=== PATIENT | male | born 1950 | race Caucasian/White ===

== ENCOUNTER 2019-10-09 21:53 | Emergency (ER) | payer MEDICARE ==
[~2019-10-09] VITALS: Ht 190.5 cm; Wt 99.8 kg
[2019-10-09] MEDS ORDERED: ONDANSETRON 4 MG ORAL DISINTEGRATING TAB (Q0162 PER 1MG) PO ONE (22:30)
[2019-10-09] MEDS ORDERED: NS 1,000 ML IV ONE (22:45)
[2019-10-09 22:51] LABS: INFLUENZA A AMPLIFICATION NEGATIVE (NEGATIVE); INFLUENZA B AMPLIFICATION NEGATIVE (NEGATIVE)
[2019-10-09] MEDS ORDERED: ACETAMINOPHEN 325 MG TAB PO ONE (23:00)
[2019-10-09 23:07] LABS: BASO % 0.2 % (0.0-1.0); EOS # 0.1 10^3/uL (0.0-0.5); EOS % 1.1 % (0.0-3.0); HEMATOCRIT 46.9 % (42.0-52.0); HEMOGLOBIN 15.1 g/dl (13.5-17.5); LYMPH % 3.1 % (24.0-44.0); MEAN CORPUSCULAR HEMOGLOBIN 30.9 pg (27.0-33.0); MEAN CORPUSCULAR HGB CONC 32.2 g/dl (32.0-36.5); MEAN CORPUSCULAR VOLUME 96.1 fl (80.0-96.0); MONO # 0.4 10^3/uL (0.0-0.8); MONO % 6.4 % (0.0-5.0); NEUTROPHILS # 5.4 10^3/uL (1.5-8.5); PLATELET COUNT, AUTOMATED 133 10^3/uL (150-450); RED BLOOD COUNT 4.88 10^6/uL (4.30-6.10); WHITE BLOOD COUNT 6.1 10^3/uL (4.0-10.0)
[2019-10-09 23:22] LABS: INR 1.06; PROTHROMBIN TIME 13.5 SECONDS (11.8-14.0)
[2019-10-09 23:23] LABS: PARTIAL THROMBOPLASTIN TIME 29.4 SECONDS (25.0-38.4)
[2019-10-09 23:32] LABS: ALBUMIN 4.4 GM/DL (3.2-5.2); ALT/SGPT 31 U/L (12-78); BILIRUBIN,DIRECT 0.3 MG/DL (0.0-0.2); BILIRUBIN,TOTAL 0.8 MG/DL (0.2-1.0); BLOOD UREA NITROGEN 23 MG/DL (7-18); CARBON DIOXIDE LEVEL 27 MEQ/L (21-32); CHLORIDE LEVEL 106 MEQ/L (98-107); CK-MB VALUE MASS 6.9 NG/ML (<3.6); CPK CREATINE PHOSPHOKINASE 403 U/L (39-308); CREATININE FOR GFR 1.37 MG/DL (0.70-1.30); GLUCOSE, FASTING 124 MG/DL (70-100); LIPASE 104 U/L (73-393); MB/CK RELATIVE INDEX 1.71 (< OR =4); POTASSIUM SERUM 4.6 MEQ/L (3.5-5.1); SODIUM LEVEL 139 MEQ/L (136-145); TOTAL PROTEIN 7.9 GM/DL (6.4-8.2); TROPONIN I < 0.02 NG/ML (< 0.10)
[2019-10-09 23:35] LABS: LYMPH # 0.2 10^3/uL (1.5-5.0)
[2019-10-10 00:21] LABS: MYOGLOBIN SCREEN, URINE NEGATIVE (NEGATIVE)
[2019-10-10] MEDS ORDERED: IBUPROFEN 800 MG TAB PO ONE (00:30)
[2019-10-10] MEDS ORDERED: ONDA4TAB6 PO (00:59)
[2019-10-10 01:02] VITALS: BP 125/69
--- NOTE | 2019-10-10 06:30 | ECGEPIP ---
[facility] - ED Test Date: 2019-10-09 Pat Name: Arvind MATHEWS Department: Room: - Gender: Male Compliance Assistant: FRANCA : 1950 Requested By: FRANKIE HUMPHRIES PA-C Order Number: [id number] Reading MD: Mary Jane Laura Measurements Intervals [place] Rate: 84 P: 49 ME: 172 QRS: 17 QRSD: 95 T: 41 QT: 356 QTc: 423 Interpretive Statements SINUS RHYTHM SEPTAL MYOCARDIAL INFARCTION, PROBABLY OLD NONSPECIFIC ST T WAVE CHANGES DELAYED R WAVE PROGRESSION NO PRIOR ECG FOR COMPARISON Electronically Signed on 10-10-2019 6:30:05 EST by Mary Jane Laura
--- NOTE | 2019-10-10 11:12 | REP ---
CHEST PA AND LATERAL: 10/10/2019. CLINICAL HISTORY: Fever. FINDINGS: No prior study. Lungs adequately inflated. There is no infiltrate, effusion, atelectasis or mass. No lateral pleural thickening apical scarring or pneumothorax. The heart, mediastinal and hilar contours grossly unremarkable. The aorta is tortuous and ectatic without aneurysm and normal for age. The airway is unremarkable. No hilar or mediastinal mass. Bones without acute compression deformity. There is mild dextroconvex curvature of the mid-thoracic spine. A few air-fluid levels in nondilated loops in the upper abdomen are nonspecific finding. IMPRESSION: 1. No acute cardiopulmonary change. Electronically Signed by Jani Salamanca MD 10/10/2019 07:56 P
== END 2019-10-10 01:12 | disposition home or self-care (01) ==
LOC: M ED 21:53
DX: A08.11 Acute gastroenteropathy due to Norwalk agent (principal); I10 Essential (primary) hypertension; I48.91 Unspecified atrial fibrillation; I71.4 Abdominal aortic aneurysm, without rupture; N40.0 Benign prostatic hyperplasia without lower urinary tract symptoms
CPT/HCPCS: 71046; 80048; 80076; 81001; 81002; 82550; 82553; 83605; 83690; 84484; 85025; 85610; 85730; 86850; 86900; 86901; 87040; 87502; 87507; 93005; 96360; 96361; 99284; Q0162